=== PATIENT | male | born 2000 ===

== ENCOUNTER 2023-06-09 05:34 | Day surgery (SDC) | payer OTHER ==
[2023-06-02 10:19] LABS: HEMATOCRIT 43.4 % (39.0-48.0); HEMOGLOBIN 14.8 g/dL (13-16.00); MEAN CELL VOLUME 89.6 fL (80.0-100.00); MEAN CORPUSCULAR HEMOGLOBIN 30.6 pg (27.00-32.0); MEAN CORPUSCULAR HGB CONC 34.2 g/dl (32.0-36.0); PH,URINE 5.5 (5.0-8.0); PLATELET COUNT 207 K/uL (150-450); RED BLOOD COUNT 4.84 M/uL (4.00-6.00); RED CELL DISTRIBUTION WIDTH 13.8 % (11.5-14.5); URINE APPEARANCE Clear; URINE BILIRRUBIN Negative (NEGATIVE); URINE BLOOD Negative; URINE COLOR Yellow; URINE GLUCOSE Negative (NEGATIVE); URINE LEUKOCYTE Negative; URINE NITRATE Negative; URINE PROTEIN Negative (NEGATIVE); URINE UROBILINOGEN 0.2 E.U./dl
[2023-06-02 10:24] LABS: URINE EPITHELIAL CELLS 2.1 uL (0.0-38.8)
[2023-06-02 10:28] LABS: URINE BACTERIA 3.7 uL (0.0-1933); URINE RBC 0.5 uL (0.0-20.8)
[2023-06-02 10:52] LABS: INR 1.1; PARTIAL THROMBOPLASTIN TIME 32.8 SECONDS (22.0-34.0); PROTHROMBIN TIME 11.5 SECONDS (9.0-11.5)
[2023-06-02 11:03] LABS: ALBUMIN 4.3 gm/dL (3.4-5.0); BILIRUBIN TOTAL 0.41 mg/dL (0.3-1.2); CALCIUM 9.3 mg/dL (8.5-10.1); CREATININE SERUM 1.06 mg/dL (0.70-1.30); GFR 88.19; GLOBULINA 3.3 G/DL (2.4-3.5); POTASSIUM 3.88 mEq/L (3.5-5.1); TOTAL PROTEIN 7.6 gm/dL (6.4-8.2)
[2023-06-09] MEDS ORDERED: TRAMADOL HCL50 MG PO (07:23)
[2023-06-09] MEDS ORDERED: NEURONTIN600 M1 PO (07:23)
[2023-06-09] MEDS ORDERED: SURFAK240 M1 PO (07:24)
[2023-06-09] MEDS ORDERED: TYLENOL325 M1 PO (07:24)
== END 2023-06-09 12:05 | disposition home or self-care (01) ==
LOC: CIR.AMB 05:34
PROVIDERS: ATTEND Surgery
DX: K40.90 Unilateral inguinal hernia, without obstruction or gangrene, not specified as recurrent (principal); K42.0 Umbilical hernia with obstruction, without gangrene; I10 Essential (primary) hypertension; Z20.822 Contact with and (suspected) exposure to COVID-19
CPT/HCPCS: 49650; 15734; 49594; C1781